=== PATIENT | female | born 1960 | race Caucasian/White ===

== ENCOUNTER 2019-04-01 11:44 | Emergency (ER) | payer BC ==
[2019-04-01] MEDS ORDERED: Fluorescein Opthalmic Strip ONE (13:28)
[2019-04-01] MEDS ORDERED: Proparacaine 0.5% Opth 15 ML BOT ONE (13:28)
[2019-04-01] MEDS ORDERED: Adacel (T-DAP) 0.5 ML SYRINGE ONE (13:29)
--- NOTE | 2019-04-01 14:48 | CT ---
EXAM: CT facial bones PROVIDED CLINICAL HISTORY: Hit in right eye by dog with right eye swelling COMPARISON: None FINDINGS: Bones: Nasal bones: Intact. Maxilla: Intact. Mandible: Intact. Zygomatic arches: Intact. Pterygoid plates: Intact. Orbital rims: Intact. Orbital wall and floor: Intact. Frontal skull: Intact. Paranasal sinuses: Intact. Orbits: Small drusen calcifications are seen at the level of the optic nerve. The globes are intact. The lenses are in place. Visualized intracranial contents: Intact. Cervical spine: Mild spondylosis of the upper cervical spine. No acute fracture or subluxation demons trated. Soft tissues: Intact. IMPRESSION: No evidence for fracture.
== END 2019-04-01 16:45 | disposition home or self-care (01) ==
LOC: ERS 11:44
DX: S00.11XA Contusion of right eyelid and periocular area, initial encounter (principal); F32.9 Major depressive disorder, single episode, unspecified; E78.5 Hyperlipidemia, unspecified; I10 Essential (primary) hypertension; J45.909 Unspecified asthma, uncomplicated; Z79.51 Long term (current) use of inhaled steroids; Z23 Encounter for immunization; W54.1XXA Struck by dog, initial encounter
CPT/HCPCS: 70486; 90471; 90715

== ENCOUNTER 2019-04-23 10:05 | Outpatient (CLI) | payer BC ==
--- NOTE | 2019-04-23 12:14 | BD ---
DEXA BONE DENSITY STUDY: Date: 04/23/19 HISTORY: 58-year-old postmenopausal female for screening. FINDINGS: Lumbar Spine: BMD (g/cm2) L1 0.790 T-Score: -1.8 L2 1.148 T-Score: 1.1 L3 1.155 T-Score: 0.6 L4 0.900 T-Score: -1.5 L1-L4 0.998 T-Score: -0.4 Left Femoral Neck: 0.615 T-Score: -2.1 Total Femur: 0.766 T-Score: -1.4 IMPRESSION: Osteopenia. POS: KAYLI
--- NOTE | 2019-04-30 15:30 | MMO ---
Bilateral MAMMO Bilat Screen [facility]. CLINICAL HISTORY: Patient is 59 years old and is seen for screening. The patient has no family history of breast cancer. The patient has no personal history of cancer. The patient has a history of Excisional Biopsy in 30 YRS AGO - benign - CYST REMOVAL. VIEWS: The views performed were: bilateral craniocaudal with tomosynthesis and bilateral mediolateral oblique with tomosynthesis. FILMS COMPARED: The present examination has been compared to prior imaging studies performed at [facility] on 11/05/2013, 11/19/2013, 02/04/2015 and 02/27/2016. MAMMOGRAM FINDINGS: There are scattered fibroglandular densities. There are stable benign appearing calcifications seen in both breasts. There are no suspicious masses, suspicious calcifications, or new areas of architectural distortion. IMPRESSION: THERE IS NO MAMMOGRAPHIC EVIDENCE OF MALIGNANCY. A ROUTINE FOLLOW-UP MAMMOGRAM IN 1 YEAR IS RECOMMENDED. THE RESULTS OF THIS EXAM WERE SENT TO THE PATIENT. ACR BI-RADS Category 2 - Benign finding MAMMOGRAPHY NOTE: 1. A negative mammogram report should not delay a biopsy if a dominant of clinically suspicious mass is present. 2. Approximately 10% to 15% of breast cancers are not detected by mammography. 3. Adenosis and dense breasts may obscure an underlying neoplasm. Reported by: EVAN GOLDSTEIN MD Electonically Signed: [id number]
== END 2019-04-23 10:06 | disposition home or self-care (01) ==
LOC: BICMAMMO 10:05
PROVIDERS: ATTEND Family Medicine
DX: Z12.31 Encounter for screening mammogram for malignant neoplasm of breast (principal); Z13.820 Encounter for screening for osteoporosis; J01.90 Acute sinusitis, unspecified; I10 Essential (primary) hypertension; M85.89 Other specified disorders of bone density and structure, multiple sites
CPT/HCPCS: 77063; 77067; 77080